=== PATIENT | male | born 1985 | race Caucasian/White ===

== ENCOUNTER 2021-10-13 18:28 | Emergency (ER) | payer OTHER, SELFPAY ==
--- NOTE | 2021-10-13 18:55 | ED_ITS ---
HPI - Psych General Chief Complaint: Psychiatric Symptoms <Zandra Anaya NP - Last Filed: 10/14/21 03:15> Stated Complaint: med clearance for detox <Zandra Anaya NP - Last Filed: 10/14/21 03:15> Time Seen by Provider: 10/13/21 22:48 <Zandra Anaya NP - Last Filed: 10/14/21 03:15> Source: patient and EMS <Zandra Anaya NP - Last Filed: 10/14/21 03:15> Mode of arrival: EMS <Zandra Anaya NP - Last Filed: 10/14/21 03:15> Limitations: no limitations <Zandra Anaya NP - Last Filed: 10/14/21 03:15> History of Present Illness HPI Narrative: 35-year-old male presents via EMS from [facility] for suicidal ideation. Patient is on a [place] [address]. States that he is depressed, and will not disclose his plan. <Zandra Anaya NP - Last Filed: 10/14/21 03:15> MD complaint: suicidal ideation and feels depressed <Zandra Anaya NP - Last Filed: 10/14/21 03:15> Onset (ago): week(s) <Zandra Anaya NP - Last Filed: 10/14/21 03:15> Duration: constant <Zandra Anaya NP - Last Filed: 10/14/21 03:15> Relieving factors: none <Zandra Anaya NP - Last Filed: 10/14/21 03:15> Context: recent drug abuse (At [facility] detox facility, reports sobriety for 12 days) <Zandra Anaya NP - Last Filed: 10/14/21 03:15> Associated psychiatric symptoms: depression and suicidal ideation <Zandra Anaya NP - Last Filed: 10/14/21 03:15> Associated symptoms: denies other symptoms <Zandra Anaya NP - Last Filed: 10/14/21 03:15> Treatments prior to arrival: placed on mental health hold <Zandra Anaya NP - Last Filed: 10/14/21 03:15> If self harm: admits thoughts of self harm <DONOVAN De Leon Last Filed: 10/14/21 0 3:15> Related Data Home Medications: Home Medications Medication Instructions Recorded Confirmed hydroxyzine pamoate 25 mg capsule 25 mg PO QID 10/13/21 10/13/21 ibuprofen 400 mg tablet 1 tab PO TID 10/13/21 10/13/21 naltrexone 50 mg tablet 1 tab PO DAILY 10/13/21 10/13/21 nicotine 14 mg/24 hr daily 1 patch topical DAILY 10/13/21 10/13/21 transdermal patch trazodone 50 mg tablet 1 tab PO BEDTIME 10/13/21 10/13/21 <Zandra Anaya NP - Last Filed: 10/14/21 03:15> Allergies/Adverse Reactions: Allergies Allergy/AdvReac Type Severity Reaction Status Date / Time No Known Allergies Allergy Verified 10/13/21 18:55 <DONOVAN De Leon Last Filed: 10/14/21 03:15> Review of Systems Review of Systems: Constitutional: No Fever, No Chills ENT/Mouth: No Ear Pain, No Nasal Congestion, No sore throat Eyes: No Eye Pain, No Swelling, No Redness Cardiovascular: No Chest Pain, No SOB Respiratory: No Cough, No Sputum, No Dyspnea Gastrointestinal: No Nausea, No Vomiting, No Diarrhea, No Hematochezia, No Melena Genitourinary: No Dysuria, No Urinary Frequency, No Hematuria Musculoskeletal: No Myalgias Skin: No Skin Lesions, No rash Neuro: No Weakness, No Numbness, No Paresthesias, No Dizziness, No Headache Psych: positive Anxiety, positive Depression, positive SI Heme/Lymph: No Lymphadenopathy Endocrine: No Polyuria, No Polydipsia <Zandra Anaya NP - Last Filed: 10/14/21 03:15> Yes all other systems are reviewed and are negative <Zandra Anaya NP - Last Filed: 10/14/21 03:15> [facility] Past Medical History Attestation statement: The following information was validated with the patient. <DONOVAN De Leon Last Filed: 10/14/21 03:15> Source: old records reviewed <Zandra Anaya NP - Last Filed: 10/14/21 03:15> Social History Social History: Social History Advance Directives: No Advance Directives Information Provided: No <Zandra Anaya NP - Last Filed: 10/14/21 03:15> Physical Exam 2 Vital Signs: Vital Signs: Last Vital Signs Temp 98.4 F 10/14/21 00:37 Pulse 90 10/14/21 00:37 Resp 10/14/21 00:37 BP 122/80 10/14/21 00:37 Pulse Ox 98 10/14/21 00:37 O2 Del Method 10/14/21 00:37 BMI result Body Mass Index 32.0 <Zandra Anaya NP - Last Filed: 10/14/21 03:15> Vital Signs: Last Vital Signs Temp 98.4 F 10/14/21 00:37 Pulse 90 10/14/21 00:37 Resp 10/14/21 00:37 BP 122/80 10/14/21 00:37 Pulse Ox 98 10/14/21 00:37 O2 Del Method 10/14/21 00:37 BMI result Body Mass Index 32.0 <Delma Salmeron MD - Last Filed: 10/14/21 06:18> Appearance: Alert. Oriented X3. Moderate emotional distress. Eyes: Pupils equal, round and reactive to light. ENT: Pharynx normal. Neck: Normal inspection. Neck supple. CVS: Normal heart rate and rhythm. Pulses normal. Respiratory: No respiratory distress. Breath sounds normal. Abdomen: Soft and nontender. Skin: Skin warm and dry. Normal skin color. Normal skin turgor. Extremities: No lower extremity edema. Gait well balanced well coordinated. Neuro: No motor deficit. No sensory deficit. Cranial nerves 2-12 intact. <Zandra Anaya NP - Last Filed: 10/14/21 03:15> Course Course Course Narrative: 35-year-old male presents from your [facility] for suicidal ideation. States that he does not have a plan, has been very anxious and has not slept for 5 days. States that he is having dark thoughts. He will not elaborate on his thoughts. 21:54 patient medically cleared. Physician observation started at this time 22:30 N consult complete, states the patient has had insomnia over the past 5 days. He denies suicidal ideation at this time. Patient is looking for medications help him sleep. He states that trazodone isn't effective. Will provide olanzapine and Benadryl, [facility] will re-evaluate this patient in the morning. <Zandra Anaya NP - Last Filed: 10/14/21 03:15> Reevaluation(s) Reevaluation #1: Patient has been having a rough time sleeping. Earlier today patient had olanzapine and Benadryl but did not work well. Eventually patient received Seroquel but has not slept yet. Patient received an additional dose of IM Benadryl around 06:00. Patient looks physically tired and frustrated. Patient could benefit from a few hours of sleep. Patient is being followed up by care team. <Delma Salmeron MD - Last Filed: 10/14/21 06:18> Time: 06:17 <Delma Salmeron MD - Last Filed: 10/14/21 06:18> MDM - Psych Differential Diagnosis Differential diagnosis: Likely acute psychosis, suicidal ideation, depression and drug-induced psychotic disorder <Zandra Anaya NP - Last Filed: 10/14/21 03:15> Medical Records Attestation: I reviewed the patient's medical records. <Zandra Anaya NP - Last Filed: 10/14/21 03:15> Lab Data Attestation: I reviewed the patient's lab results. <Zandra Anaya NP - Last Filed: 10/14/21 03:15> Result diagrams: : 10/13/21 20:46 10/13/21 20:46 <Zandra Anaya NP - Last Filed: 10/14/21 03:15> Labs: Lab Results 10/13/21 10/13/21 10/13/21 Range/Units 20:46 20:46 20:49 WBC 12.3 H (4.8-10.8) X10*3/uL RBC 4.78 (4.60-5.80) X10*6/uL Hgb 12.1 L (14.0-18.0) g/dl Hct 37.2 L (42.0-52.0) % MCV 77.8 L (80.0-98.0) fL MCH 25.3 L (27.0-33.0) pg MCHC 32.5 (31.0-36.0) g/dl RDW 13.4 (11.0-16.0) % Plt Count 325 (160-400) X10*3/uL MPV 9.7 (9.4-12.4) fL Immature Gran % (Auto) 0.2 (0.0-0.4) % Neut % (Auto) 64.2 (45-73) % Lymph % (Auto) 26.5 (20-40) % [place] % (Auto) 7.8 (2-11) % Eos % (Auto) 0.7 (0-4) % Baso % (Auto) 0.6 (0-2) % Lymph # (Auto) 3.3 (1.2-4.9) X10*3/uL [place] # (Auto) 1.0 (0.1-1.2) X10*3/uL Eos # (Auto) 0.1 (0.0-0.4) X10*3/uL Baso # (Auto) 0.1 (0.0-0.2) X10*3/uL Abs Immat Gran (auto) 0.03 (0.00-0.03) X10*3/uL Absolute Neuts (auto) 7.9 (2.0-8.3) x10*3/uL Absolute Nucleated RBC 0.000 (0.0-0.012) X10*3/uL Nucleated RBC % (auto) 0.0 (0.0-0.2) /100WBC Sodium 143 (135-145) mmol/L Potassium 4.0 (3.3-5.1) mmol/L Chloride 107 (96-108) mmol/L Carbon Dioxide 23 (22-29) mmol/L Anion Gap 17 (12-20) BUN 13 (9-16) mg/dL Creatinine 1.01 (0.5-1.4) mg/dL Estim Creat Clear Calc 118.0 Estimated GFR > 60 Random Glucose 115 (60-115) mg/dL Calcium 9.7 (8.4-10.2) mg/dL Total Bilirubin < 0.2 (0.0-1.0) mg/dL AST 14 (5-37) U/L ALT 27 (0-40) U/L Alkaline Phosphatase 28 L (39-117) U/L Total Protein 7.7 (6.5-8.0) g/dL Albumin 4.7 (3.5-5.0) g/dL Salicylates < 5.0 L (15-30) mg/dL Urine Opiates Screen Not Detected (Not Detect) Urine Fentanyl Screen POSITIVE H (Not Detect) Acetaminophen < 1 (<30) mcg/mL Ur Barbiturates Screen Not Detected (Not Detect) Ur Phencyclidine Scrn Not Detected (Not Detect) Ur Amphetamines Screen Not Detected (Not Detect) U Benzodiazepines Scrn Not Detected (Not Detect) Urine Cocaine Screen Not Detected (Not Detect) U Marijuana (THC) Screen POSITIVE H (Not Detect) Ethyl Alcohol < 10 mg/dL COVID-19 (DEVONTE) (Negative) COVID-19 Clin Com 10/13/21 Range/Units 21:03 WBC (4.8-10.8) X10*3/uL RBC (4.60-5.80) X10*6/uL Hgb (14.0-18.0) g/dl Hct (42.0-52.0) % MCV (80.0-98.0) fL MCH (27.0-33.0) pg MCHC (31.0-36.0) g/dl RDW (11.0-16.0) % Plt Count (160-400) X10*3/uL MPV (9.4-12.4) fL Immature Gran % (Auto) (0.0-0.4) % Neut % (Auto) (45-73) % Lymph % (Auto) (20-40) % [place] % (Auto) (2-11) % Eos % (Auto) (0-4) % Baso % (Auto) (0-2) % Lymph # (Auto) (1.2-4.9) X10*3/uL [place] # (Auto) (0.1-1.2) X10*3/uL Eos # (Auto) (0.0-0.4) X10*3/uL Baso # (Auto) (0.0-0.2) X10*3/uL Abs Immat Gran (auto) (0.00-0.03) X10*3/uL Absolute Neuts (auto) (2.0-8.3) x10*3/uL Absolute Nucleated RBC (0.0-0.012) X10*3/uL Nucleated RBC % (auto) (0.0-0.2) /100WBC Sodium (135-145) mmol/L Potassium (3.3-5.1) mmol/L Chloride (96-108) mmol/L Carbon Dioxide (22-29) mmol/L Anion Gap (12-20) BUN (9-16) mg/dL Creatinine (0.5-1.4) mg/dL Estim Creat Clear Calc Estimated GFR Random Glucose (60-115) mg/dL Calcium (8.4-10.2) mg/dL Total Bilirubin (0.0-1.0) mg/dL AST (5-37) U/L ALT (0-40) U/L Alkaline Phosphatase (39-117) U/L Total Protein (6.5-8.0) g/dL Albumin (3.5-5.0) g/dL Salicylates (15-30) mg/dL Urine Opiates Screen (Not Detect) Urine Fentanyl Screen (Not Detect) Acetaminophen (<30) mcg/mL Ur Barbiturates Screen (Not Detect) Ur Phencyclidine Scrn (Not Detect) Ur Amphetamines Screen (Not Detect) U Benzodiazepines Scrn (Not Detect) Urine Cocaine Screen (Not Detect) U Marijuana (THC) Screen (Not Detect) Ethyl Alcohol mg/dL COVID-19 ([facility]TE) Negative (Negative) COVID-19 Clin Com See Note <Zandra Anaya NP - Last Filed: 10/14/21 03:15> Lab Results 10/13/21 10/13/21 10/13/21 Range/Units 20:46 20:46 20:49 WBC 12.3 H (4.8-10.8) X10*3/uL RBC 4.78 (4.60-5.80) X10*6/uL Hgb 12.1 L (14.0-18.0) g/dl Hct 37.2 L (42.0-52.0) % MCV 77.8 L (80.0-98.0) fL MCH 25.3 L (27.0-33.0) pg MCHC 32.5 (31.0-36.0) g/dl RDW 13.4 (11.0-16.0) % Plt Count 325 (160-400) X10*3/uL MPV 9.7 (9.4-12.4) fL Immature Gran % (Auto) 0.2 (0.0-0.4) % Neut % (Auto) 64.2 (45-73) % Lymph % (Auto) 26.5 (20-40) % [place] % (Auto) 7.8 (2-11) % Eos % (Auto) 0.7 (0-4) % Baso % (Auto) 0.6 (0-2) % Lymph # (Auto) 3.3 (1.2-4.9) X10*3/uL [place] # (Auto) 1.0 (0.1-1.2) X10*3/uL Eos # (Auto) 0.1 (0.0-0.4) X10*3/uL Baso # (Auto) 0.1 (0.0-0.2) X10*3/uL Abs Immat Gran (auto) 0.03 (0.00-0.03) X10*3/uL Absolute Neuts (auto) 7.9 (2.0-8.3) x10*3/uL Absolute Nucleated RBC 0.000 (0.0-0.012) X10*3/uL Nucleated RBC % (auto) 0.0 (0.0-0.2) /100WBC Sodium 143 (135-145) mmol/L Potassium 4.0 (3.3-5.1) mmol/L Chloride 107 (96-108) mmol/L Carbon Dioxide 23 (22-29) mmol/L Anion Gap 17 (12-20) BUN 13 (9-16) mg/dL Creatinine 1.01 (0.5-1.4) mg/dL Estim Creat Clear Calc 118.0 Estimated GFR > 60 Random Glucose 115 (60-115) mg/dL Calcium 9.7 (8.4-10.2) mg/dL Total Bilirubin < 0.2 (0.0-1.0) mg/dL AST 14 (5-37) U/L ALT 27 (0-40) U/L Alkaline Phosphatase 28 L (39-117) U/L Total Protein 7.7 (6.5-8.0) g/dL Albumin 4.7 (3.5-5.0) g/dL Salicylates < 5.0 L (15-30) mg/dL Urine Opiates Screen Not Detected (Not Detect) Urine Fentanyl Screen POSITIVE H (Not Detect) Acetaminophen < 1 (<30) mcg/mL Ur Barbiturates Screen Not Detected (Not Detect) Ur Phencyclidine Scrn Not Detected (Not Detect) Ur Amphetamines Screen Not Detected (Not Detect) U Benzodiazepines Scrn Not Detected (Not Detect) Urine Cocaine Screen Not Detected (Not Detect) U Marijuana (THC) Screen POSITIVE H (Not Detect) Ethyl Alcohol < 10 mg/dL COVID-19 ([facility]ONTE) (Negative) COVID-19 Clin Com 10/13/21 Range/Units 21:03 WBC (4.8-10.8) X10*3/uL RBC (4.60-5.80) X10*6/uL Hgb (14.0-18.0) g/dl Hct (42.0-52.0) % MCV (80.0-98.0) fL MCH (27.0-33.0) pg MCHC (31.0-36.0) g/dl RDW (11.0-16.0) % Plt Count (160-400) X10*3/uL MPV (9.4-12.4) fL Immature Gran % (Auto) (0.0-0.4) % Neut % (Auto) (45-73) % Lymph % (Auto) (20-40) % [place] % (Auto) (2-11) % Eos % (Auto) (0-4) % Baso % (Auto) (0-2) % Lymph # (Auto) (1.2-4.9) X10*3/uL [place] # (Auto) (0.1-1.2) X10*3/uL Eos # (Auto) (0.0-0.4) X10*3/uL Baso # (Auto) (0.0-0.2) X10*3/uL Abs Immat Gran (auto) (0.00-0.03) X10*3/uL Absolute Neuts (auto) (2.0-8.3) x10*3/uL Absolute Nucleated RBC (0.0-0.012) X10*3/uL Nucleated RBC % (auto) (0.0-0.2) /100WBC Sodium (135-145) mmol/L Potassium (3.3-5.1) mmol/L Chloride (96-108) mmol/L Carbon Dioxide (22-29) mmol/L Anion Gap (12-20) BUN (9-16) mg/dL Creatinine (0.5-1.4) mg/dL Estim Creat Clear Calc Estimated GFR Random Glucose (60-115) mg/dL Calcium (8.4-10.2) mg/dL Total Bilirubin (0.0-1.0) mg/dL AST (5-37) U/L ALT (0-40) U/L Alkaline Phosphatase (39-117) U/L Total Protein (6.5-8.0) g/dL Albumin (3.5-5.0) g/dL Salicylates (15-30) mg/dL Urine Opiates Screen (Not Detect) Urine Fentanyl Screen (Not Detect) Acetaminophen (<30) mcg/mL Ur Barbiturates Screen (Not Detect) Ur Phencyclidine Scrn (Not Detect) Ur Amphetamines Screen (Not Detect) U Benzodiazepines Scrn (Not Detect) Urine Cocaine Screen (Not Detect) U Marijuana (THC) Screen (Not Detect) Ethyl Alcohol mg/dL COVID-19 ([facility]ONTE) Negative (Negative) COVID-19 Clin Com See Note <Delma Salmeron MD - Last Filed: 10/14/21 06:18> Discharge Plan Discharge Clinical Impression: Depression, Insomnia <Zandra Anaya NP - Last Filed: 10/14/21 03:15> Patient Disposition: Still a Patient <Zandra Anaya NP - Last Filed: 10/14/21 03:15> Instructions: Depression (ED), Insomnia (ED) <Zandra Anaya NP - Last Filed: 10/14/21 03:15> Additional Instructions: Please follow-up with detox and outpatient psychiatry as scheduled. Thank you for choosing this emergency department for evaluation. Please follow-up with primary care physician as needed. Return to the emergency department for any new, concerning, or worsening symptoms. <Zandra Anaya NP - Last Filed: 10/14/21 03:15> Prescriptions: No Action nicotine 14 mg/24 hr patch 24 hour 1 patch topical DAILY trazodone 50 mg tablet 1 tab PO BEDTIME naltrexone 50 mg tablet 1 tab PO DAILY ibuprofen 400 mg tablet 1 tab PO TID hydroxyzine pamoate 25 mg capsule 25 mg PO QID <Zandra Anaya FINISHER POLISHER - Last Filed: 10/14/21 03:15>
[2021-10-13 19:15] VITALS: BP 118/78; BP 152/92; PULSE 85; PULSE 90; RESP 16; TEMP 36.8; O2SAT 100; O2SAT 97; BMI 32.0
[2021-10-13 20:53] LABS: MANUAL DIFF FLAG NO
[2021-10-13 20:57] LABS: Basophils Absolute Auto 0.1 X10*3/uL (0.0-0.2); Basophils Percent Auto 0.6 % (0-2); Eosinophils Absolute Auto 0.1 X10*3/uL (0.0-0.4); Eosinophils Percent Auto 0.7 % (0-4); Hematocrit 37.2 % (42.0-52.0); Hemoglobin 12.1 g/dl (14.0-18.0); Imm Gran Abs Auto 0.03 X10*3/uL (0.00-0.03); Imm Gran Pct Auto 0.2 % (0.0-0.4); Lymphocytes Absolute Auto 3.3 X10*3/uL (1.2-4.9); Lymphocytes Percent Auto 26.5 % (20-40); Mean Corpuscular HGB Conc 32.5 g/dl (31.0-36.0); Mean Corpuscular Hemoglobin 25.3 pg (27.0-33.0); Mean Corpuscular Volume 77.8 fL (80.0-98.0); Mean Platelet Volume 9.7 fL (9.4-12.4); Monocytes Percent Auto 7.8 % (2-11); Neutrophils Absolute Auto 7.9 x10*3/uL (2.0-8.3); Neutrophils Percent Auto 64.2 % (45-73); Platelet Count 325 X10*3/uL (160-400); Red Blood Count 4.78 X10*6/uL (4.60-5.80); Red Cell Distribution Width 13.4 % (11.0-16.0); White Blood Count 12.3 X10*3/uL (4.8-10.8)
[2021-10-13 21:12] LABS: Amphetamine Screen Urine Not Detected (Not Detect); Barbiturates, Urine Not Detected (Not Detect); Benzodiazepines Screen Urine Not Detected (Not Detect); Cannabinoid Screen Urine POSITIVE (Not Detect); Cocaine Screen Urine Not Detected (Not Detect); Fentanyl, urine POSITIVE (Not Detect); Opiate Screen Urine Not Detected (Not Detect); Phencyclidine Screen Urine Not Detected (Not Detect)
[2021-10-13 21:17] LABS: Acetaminophen LAB < 1 mcg/mL (<30); Alanine Aminotransferase 27 U/L (0-40); Albumin Level 4.7 g/dL (3.5-5.0); Alkaline Phosphatase 28 U/L (39-117); Anion Gap 17 (12-20); Aspartate Amino Transferase 14 U/L (5-37); Bilirubin Total < 0.2 mg/dL (0.0-1.0); Blood Urea Nitrogen 13 mg/dL (9-16); Calcium 9.7 mg/dL (8.4-10.2); Carbon Dioxide 23 mmol/L (22-29); Chloride 107 mmol/L (96-108); Estimated Glomerular Filt Rate > 60; Ethanol < 10 mg/dL; Glucose Random 115 mg/dL (60-115); Salicylate < 5.0 mg/dL (15-30); Sodium 143 mmol/L (135-145); Total Protein 7.7 g/dL (6.5-8.0)
[2021-10-13 21:25] LABS: COVID-19 Test Negative (Negative)
--- NOTE | 2021-10-13 22:51 | MHC.CARE ---
Pt is seen by the CARE Team for a risk consult. He is unknown to [facility] or [facility]. Pt reports he is not from the area, he is from [place] but recently moved to [facility] as he has family here. He reports he had been at [facility] for 11 days. Pt states he went into detox for fentanyl and Heroin. Pt states that he hasn't been able to sleep for approximately 5 days and reports he is having bad thoughts in the context of not being able to sleep. He states he informed [facility] of not being able to sleep and they dismissed him and did not give him medications. Pt states my body is messing with my mind, not my mind messing with my body . Pt expresses that his main concern today is that he is not able to sleep which is exasperating his mental health and easily annoyed and bothered . Pt reports that he has a hx of dual diagnosis programs and previously participated in therapy and psychiatry but this had been years ago . Pt has no hx of IP hospitalizations and no hx of suicide attempts. Pt denies current SI. CARE Team discussed case with ED provider Zandra Rascon who ordered sleeping medications for pt. Plan is for pt to sleep and CARE Team will follow up with pt in the morning to determine risk.
[2021-10-13] MEDS: diphenhydrAMINE HCL 25 MG TABLET 50 MG PO (22:56)
[2021-10-13] MEDS: OLANZapine 10 MG TABLET PO (22:56)
--- NOTE | 2021-10-13 23:04 | PC.NURSE ---
Patient just got transferred from main ED, N referral completed/confirmed/pending ETA, however patient was assessed by care team, patient engaged well, patient will be reevaluated by care team in the morning, patient reported not being able to sleep for few nights, provider made aware/ordered Olanzapine 10 mg po and Benadryl 50 mg po/administered as ordered/pending effect, vss, will continue to monitor.
[2021-10-14 00:37] VITALS: BP 122/80; PULSE 90; RESP 20; TEMP 36.9; O2SAT 98
[2021-10-14] MEDS: Nicotine Polacrilex 2 MG GUM BUCCAL ×2 (03:12→06:15)
[2021-10-14] MEDS: QUEtiapine Fumarate 100 MG TABLET PO (03:31)
[2021-10-14] MEDS: diphenhydrAMINE HCL 50 MG/ML VIAL IM (06:14)
--- NOTE | 2021-10-14 06:17 | PC.NURSE ---
Patient couldn't sleep whole night, Benadryl 50 mg po and Olanzapine 10 mg po administered at 2256 with no effect, Seroquel 100 mg administered as ordered at 0331 with no effect, patient continuos requesting medication for sleep, provider notified once again, ordered Benadryl 50 mg IM at 0614 per patient's request, administered as ordered/pending effect, VSS, denied SI/HI/AVH, patient wants to go back to Clinical stabilization service (CSS) program at [facility], behavior non concerning, med rec completed/pending provider's approval, will continue to monitor.
--- NOTE | 2021-10-14 06:30 | PC.NURSE ---
Patient was seen by care team disposition is KAREN follow up in the morning
--- NOTE | 2021-10-14 07:40 | PC.NURSE ---
patient received shannan emedications to help with sleep but still appears restless, very frequently patient is in motion.
[2021-10-14 10:23] VITALS: BP 100/66; PULSE 107; RESP 16; TEMP 36.8; O2SAT 95
[2021-10-14] MEDS: Ibuprofen 400 MG TABLET PO (12:08)
--- NOTE | 2021-10-14 12:16 | PM.PSYCN ---
History of Present Illness Date of Service: 10/14/21 Chief Complaint: med clearance for detox Reason for Consult: assess Sources of Information: patient interviewed, chart reviewed and crisis/core team assessment reviewed HPI Narrative: pt is 35 yo male, hx of anxiety, opioid abuse, who presents for sleepless and brief SI. Pt says that he has not slept for about 6-7 days; he said briefly, the other day he was feeling miserable, racing thoughts and had SI. He said he was not going to hurt himself and wished he did not say it out loud and that it was no big deal; he denies any SI at all and none since several years ago. Pt says this experience of insomnia happened once 2 years ago, also when he was coming off drugs. He denies any hx of manic type behaviors or episodes; he has hx of anxiety but does not want medication for it; he does not really want more medications to make him sleep and says what i really want is just comfort meds...i did not get any. He thinks that he is just in a prolonged withdrawal and reports nausea, leg cramps, feeling restless, sneezing (pt sneezed 5x during interview)... Pt does not want suboxone or more methadone but says Clonidine has helped; agrees to [place]. Past Psychiatric History: hx of anxiety Diagnostics Vital Signs (24Hr): Vital Signs - 24 hr 10/13/21 19:15 10/14/21 00:37 10/14/21 10:23 Temperature 98.3 F 98.4 F 98.3 F Pulse Rate 85 90 107 H Respiratory Rate 16 20 16 Blood Pressure 118/78 122/80 100/66 Pulse Oximetry 100 98 95 Oxygen Delivery Method Room Air Room Air Room Air BMI result Body Mass Index 32.0 Labs Results: 10/13/21 20:46 10/13/21 20:46 Labs: Laboratory Results - last 48 hr 10/13/21 10/13/21 10/13/21 20:46 20:46 20:49 WBC 12.3 H RBC 4.78 Hgb 12.1 L Hct 37.2 L MCV 77.8 L MCH 25.3 L MCHC 32.5 RDW 13.4 Plt Count 325 MPV 9.7 Immature Gran % (Auto) 0.2 Neut % (Auto) 64.2 Lymph % (Auto) 26.5 [place] % (Auto) 7.8 Eos % (Auto) 0.7 Baso % (Auto) 0.6 Lymph # (Auto) 3.3 [place] # (Auto) 1.0 Eos # (Auto) 0.1 Baso # (Auto) 0.1 Abs Immat Gran (auto) 0.03 Absolute Neuts (auto) 7.9 Absolute Nucleated RBC 0.000 Nucleated RBC % (auto) 0.0 Sodium 143 Potassium 4.0 Chloride 107 Carbon Dioxide 23 Anion Gap 17 BUN 13 Creatinine 1.01 Estim Creat Clear Calc 118.0 Estimated GFR > 60 Random Glucose 115 Calcium 9.7 Total Bilirubin < 0.2 AST 14 ALT 27 Alkaline Phosphatase 28 L Total Protein 7.7 Albumin 4.7 Salicylates < 5.0 L Urine Opiates Screen Not Detected Urine Fentanyl Screen POSITIVE H Acetaminophen < 1 Ur Barbiturates Screen Not Detected Ur Phencyclidine Scrn Not Detected Ur Amphetamines Screen Not Detected U Benzodiazepines Scrn Not Detected Urine Cocaine Screen Not Detected U Marijuana (THC) Screen POSITIVE H Ethyl Alcohol < 10 COVID-19 ([facility]ONTE) COVID-19 [employer] 10/13/21 21:03 WBC RBC Hgb Hct MCV MCH MCHC RDW Plt Count MPV Immature Gran % (Auto) Neut % (Auto) Lymph % (Auto) [place] % (Auto) Eos % (Auto) Baso % (Auto) Lymph # (Auto) [place] # (Auto) Eos # (Auto) Baso # (Auto) Abs Immat Gran (auto) Absolute Neuts (auto) Absolute Nucleated RBC Nucleated RBC % (auto) Sodium Potassium Chloride Carbon Dioxide Anion Gap BUN Creatinine Estim Creat Clear Calc Estimated GFR Random Glucose Calcium Total Bilirubin AST ALT Alkaline Phosphatase Total Protein Albumin Salicylates Urine Opiates Screen Urine Fentanyl Screen Acetaminophen Ur Barbiturates Screen Ur Phencyclidine Scrn Ur Amphetamines Screen U Benzodiazepines Scrn Urine Cocaine Screen U Marijuana (THC) Screen Ethyl Alcohol COVID-19 ([facility]ONTE) Negative COVID-19 Clin Com See Note Mental Status Exam Mental Status Exam Narrative: Pt is alert and oriented; behavior is cooperative; patient appears in withdrawal; dressed in casual attire ,adequate hygiene; mood is described as irritable; affect congruent; eye contact appropriate; Speech is normal rate, volume and prosody and not pressured; restless from withdrawal but no psychomotor agitation/retardation present; thought process is organized and goal directed; Thought content is on help with withdrawal; otherwise pertinent to relevant topics and without any delusional content, paranoid ideations or grandiosity; denies any SI/HI. There is no evidence of perceptual disturbance. Patients insight and judgment appear intact. Medications Medications Current Medications Nicotine Polacrilex (Nicotine Polacrilex 2 Mg Gum) 2 mg BUCCAL Q2H PRN PRN Reason: Nicotine Cravings Stop: 10/16/21 00:37 Last Admin: 10/14/21 06:15 Dose: 2 mg Allergies Allergies Allergy/AdvReac Type Severity Reaction Status Date / Time No Known Allergies Allergy Verified 10/13/21 18:55 Assessment & Plan Assessment & Plan (1) Opioid withdrawal: Status: Acute Code(s): F11.93 - Opioid use, unspecified with withdrawal Plan pt is 35 yo male, hx of anxiety, opioid abuse, who presents for sleepless and brief SI. Pt says that he has not slept for about 6-7 days; he said briefly, the other day he was feeling miserable, racing thoughts and had SI. He said he was not going to hurt himself and wished he did not say it out loud and that it was no big deal; he denies any SI at all and none since several years ago. Pt says this experience of insomnia happened once 2 years ago, also when he was coming off drugs. He denies any hx of manic type behaviors or episodes; he has hx of anxiety but does not want medication for it; he does not really want more medications to make him sleep and says what i really want is just comfort meds...i did not get any. He thinks that he is just in a prolonged withdrawal and reports nausea, leg cramps, feeling restless, sneezing (pt sneezed 5x during interview)... Pt does not want suboxone or more methadone but says Clonidine has helped; agrees to [place]. Pt says he wants to go back to [facility], just wants help w/ withdrawal symptoms A/P -sba underwriter agrees that pt is likely in prolonged withdarwal -denies hx of alex and insomnia seems most likely due to withdrawal, especially as he has past history of insomnia only during prior withdrawal. -denies any SI; says it was fleeting and fully resolved -does not appear to need inpt admission at this time; rather will order comfort meds (does not want any other medications) for now; recommend pt return to [facility] for longer treatment for withdrawal and continue with CSS ordered: clonidine bentyl flexeril zofran clonazepam (not to be given on discharge) I spent minutes with the patient and/or on the patient floor today, greater than?50% of which was spent counseling/coordinating care. Patient educated on: diagnosis, medication risk/benefits and substance abuse Informed Consent: understands
--- NOTE | 2021-10-14 12:56 | PC.NURSE ---
Report received from Mylene RODRIGUEZ. Patient resting quietly in his room. Calm and cooperative, no distress noted. Respirations regular and even. Skin PWD. Reports having a migraine, requested ibuprofen from Dr. Steen, medicated patient. Patient is now asleep and appears comfortable. Plan is for patient to have medication changes made so he can sleep and may return to [facility]. Will continue to monitor.
--- NOTE | 2021-10-14 15:02 | MHC.CARE ---
CARE Team consulted with Dr. Winters plan for return to [facility] with medication for withdrawal symptoms.
[2021-10-14] MEDS: clonazePAM 1 MG TABLET PO (15:27)
--- NOTE | 2021-10-14 16:14 | PC.NURSE ---
Pt d/c at 16:05. Unable to d/c in the system at this time.
== END 2021-10-14 16:05 | disposition other institution (70) ==
PROVIDERS: Nurse Practitioner Family; Emergency Provider Student in an Organized Health Care Education/Training Program
DX: F33.1 Major depressive disorder, recurrent, moderate (principal); R45.851 Suicidal ideations; G47.00 Insomnia, unspecified; Z20.822 Contact with and (suspected) exposure to COVID-19; Z79.899 Other long term (current) drug therapy
CPT/HCPCS: 80053; 80143; 80179; 80307; 82077; 85025; 87635; 96372; 99284; 99285; J1200; Q0163